=== PATIENT | male | born 1970 | race Caucasian/White ===

== ENCOUNTER 2018-06-16 05:25 | Emergency (ER) | payer SELFPAY ==
[~2018-06-16] VITALS: Ht 177.8 cm; Wt 79.4 kg
[2018-06-16 05:26] VITALS: BP 109/81
[2018-06-16] MEDS ORDERED: NACL 0.9% 1,000 ML IV ONE ×2 (05:30→07:45)
--- NOTE | 2018-06-16 05:55 | NUR ---
PT TO ED WITH C/O ETOH INTOXICATION. NO N/V/. PT ALERT TO NAME AND EVENT. PT SLURRING WORDS AND HAS OBVIOUS ODOR OF ETOH. PT PLACED INTO BED, PENDING MD MANZO.
[2018-06-16 06:09] LABS: BASOPHILS # (AUTO) 0.1 K/uL (0.00-0.22); BASOPHILS % (AUTO) 1.4 % (0.0-2.0); EOSINOPHILS # (AUTO) 0.2 K/uL (0-0.4); EOSINOPHILS % (AUTO) 3.3 % (0.0-4.0); HEMATOCRIT 34.7 % (36-52); HEMOGLOBIN 10.8 g/dL (12.0-18.0); LYMPHOCYTES # (AUTO) 2.9 K/uL (2.0-11.5); LYMPHOCYTES % (AUTO) 51.8 % (20.5-51.1); MEAN CORPUSCULAR HEMOGLOBIN 25 pg (27-31); MEAN CORPUSCULAR HGB CONC 31 g/dL (33-37); MEAN CORPUSCULAR VOLUME 79.9 fL (80-94); MONOCYTES # (AUTO) 0.4 K/uL (0.8-1.0); MONOCYTES % (AUTO) 7.5 % (1.7-9.3); PLATELET COUNT (AUTO) 271 K/uL (140-450); RED BLOOD CELL COUNT(AUTO) 4.35 MIL/uL (4.20-6.10); RED CELL DISTRIBUTION WIDTH 28.3 % (11.6-13.7); WHITE BLOOD COUNT (AUTO) 5.6 K/uL (4.8-10.8)
[2018-06-16 06:25] LABS: ALBUMIN 3.5 g/dL (3.4-5.0); CARBON DIOXIDE 25.5 mmol/L (21-32); CREATININE 0.6 mg/dL (0.7-1.3); POTASSIUM 3.5 mmol/L (3.5-5.1); TOTAL BILIRUBIN 0.3 mg/dL (0.0-1.0)
[2018-06-16] MEDS ORDERED: MULTIVITAMIN-12 10 ML, THIAMINE 100 MG, FOLIC ACID 1 MG, MAGNESIUM SULFATE 50% 2,000 MG... IV SCH ×5 (06:35)
[2018-06-16] MEDS ORDERED: THIAMINE 200 MG/2 ML VIAL ONE (06:45)
[2018-06-16] MEDS ORDERED: MULTIVITAMIN-12 10 ML VIAL IV ONE (06:45)
[2018-06-16] MEDS ORDERED: FOLIC ACID 5 MG/ML SYR ONE (06:45)
--- NOTE | 2018-06-16 06:57 | NUR ---
FOLIC ACID AND MULTIVITAMIN GIVEN IM. HOUSE SUP UNABLE TO PULL MAGNESIUM FOR IV INFUSION.
--- NOTE | 2018-06-16 07:20 | NUR ---
REPORT TO SPIKE ROTH FOR TRANSFER OF CARE.
--- NOTE | 2018-06-16 07:46 | NUR ---
PT DROWSY, AROUSABLE TO TACTILE STIMULATION. ORIENTED X 3 MINUS TIME. SPEECH IS SLURRED, +STRONG ETOH ODOR ON BREATH. BREATHING EVEN AND UNLABORED. DENIES PAIN. BP 82/52 ERMED AWARE. RECEIVED VERBAL ORDER FOR 0.9NS 1OOO ML BOLUS X 1 IV STAT. FLUID BOLUS INITIATED, INFUSING WITHOUT INCIDENT. CONTINUE TO MONITOR. REPEAT BP 94/50. Addendum: 06/16/18 at 0750 by [facility].
--- NOTE | 2018-06-16 08:17 | NUR ---
PT OK TO EAT PER ERMD. PT PROVIDED WITH SANDWICH AND PUDDING. PT EATING AT THIS TIME. TOLERATING WELL.
--- NOTE | 2018-06-16 09:02 | NUR ---
PT A&OX4. AMBULATORY WITH STEADY GAIT. PT TO BE DISCHARGED HOME.
--- NOTE | 2018-06-16 09:03 | NUR ---
pt ambulatory with steady gait; dr.carrillo shahid dc full clear speech, alert oriented to name place time and event pt ate half of sandwich here and took the other half with him.
--- NOTE | 2018-06-16 09:04 | NUR ---
Patient discharged with v/s stable. Written and verbal after care instructions given and explained. Patient verbalized understanding. Ambulatory with steady gait. All questions addressed prior to discharge. Advised to follow up with PMD.
[2018-06-16 09:05] VITALS: BP 114/86
== END 2018-06-16 09:00 | disposition home or self-care (01) ==
LOC: MED 05:25
DX: S61.210D Laceration without foreign body of right index finger without damage to nail, subsequent encounter (principal); F10.129 Alcohol abuse with intoxication, unspecified; X58.XXXD Exposure to other specified factors, subsequent encounter; Y90.8 Blood alcohol level of 240 mg/100 ml or more
CPT/HCPCS: 36415; 80053; 85025; 99283; A9153; G0482; J3411; J3475; J3490; J7030